=== PATIENT | female | born 1960 | race Caucasian/White ===

== ENCOUNTER 2022-01-11 13:44 | Emergency (ER) | payer MEDICAID ==
[~2022-01-11] VITALS: Ht 139.7 cm; Wt 71.7 kg
[2022-01-11 14:04] VITALS: BP 177/89
--- NOTE | 2022-01-11 14:09 | NUR ---
61 Y/O FEMALE BIB SELF C/O RIGHT SHOULDER PAIN, HEADACHE RADIATING TO THE BACK 03/01 X2 WEEKS. DENIES ANY CHEST PAIN, N/V. TOOK TYLENOL FOR PAIN WITH MINIMAL RELIEF. BP AT TRIAGE 177/89, BS 130. PT STATES THAT THEY TOOK THEIR BLOOD PRESSURE MEDICATION THIS MORNING ALLERGY: PENICILLIN PMH: HTN, DM
[2022-01-11] MEDS ORDERED: ACET-8386 PO (14:46)
[2022-01-11] MEDS ORDERED: IBUP-2213 PO (14:46)
[2022-01-11] MEDS: KETOROLAC 60 MG/2 ML VIAL IM ONE (14:48)
[2022-01-11 15:10] VITALS: BP 141/67
--- NOTE | 2022-01-11 15:10 | NUR ---
Patient discharged with v/s stable. Written and verbal after care instructions About musculoskeletal pain given and explained. Patient alert, oriented and verbalized understanding of instructions. Ambulatory with steady gait. All questions addressed prior to discharge. ID band removed. Patient advised to follow up with PMD. Rx of NORCO 5-325, MOTRIN given. Patient educated on indication of medication including possible reaction and side effects. Opportunity to ask questions provided and answered.
== END 2022-01-11 15:10 | disposition home or self-care (01) ==
LOC: MED 13:44
DX: M79.18 Myalgia, other site (principal); E11.9 Type 2 diabetes mellitus without complications; I10 Essential (primary) hypertension; Z88.0 Allergy status to penicillin
CPT/HCPCS: 81002; 96372; 99283; J1885

== ENCOUNTER 2022-04-14 18:32 | Emergency (ER) | payer MEDICAID ==
[~2022-04-14] VITALS: Ht 138.4 cm; Wt 72.2 kg
[~2022-04-14 18:32] MED LIST: ACET-8386 PO; IBUP-2213 PO
[2022-04-14 18:38] VITALS: BP 160/75
--- NOTE | 2022-04-14 18:44 | NUR ---
Cameron beard in [facility] - 04/14/22 at 1846 by [email or web address] PT AMB TO BED 3.
--- NOTE | 2022-04-14 18:46 | NUR ---
PT AMB TO BED 4.
[2022-04-14] MEDS ORDERED: ACETAMINOPHEN 325 MG TAB PO ONE (19:30)
[2022-04-14] MEDS ORDERED: DOXY-565 PO (19:40)
[2022-04-14] MEDS ORDERED: IBUP-2213 PO (19:40)
[2022-04-14] MEDS ORDERED: BACI1PAC6 TP (19:40)
[2022-04-14 20:00] VITALS: BP 154/68
--- NOTE | 2022-04-14 20:02 | NUR ---
62 Y/O FEMALE BIBS FROM HOME, C/O CAT BITE XTODAY. BLEEDING CONTROLLED, SUPERFICIAL SCRATCH. PT IS ONLY CONCERNED DUE TO HER DIABETES. NO BRUISING OR DEFORMITIES. PMH: DM
--- NOTE | 2022-04-14 20:05 | NUR ---
Patient discharged with v/s stable. Written and verbal after care instructions given and explained. Patient alert, oriented and verbalized understanding of instructions. Ambulatory with steady gait. All questions addressed prior to discharge. ID band removed. Patient advised to follow up with PMD. Rx of BACITRACIN, DOXYCYCLINE MONOHYDRATE, AND IBUPROFEN given. Patient educated on indication of medication including possible reaction and side effects. Opportunity to ask questions provided and answered. VSS, A/OX4, AMBULATORY, UNLABORED BREATHING, AND CALM DEMEANOR.
== END 2022-04-14 20:05 | disposition home or self-care (01) ==
LOC: MED 18:32
DX: S81.851A Open bite, right lower leg, initial encounter (principal); E11.9 Type 2 diabetes mellitus without complications; I10 Essential (primary) hypertension; Z88.0 Allergy status to penicillin; Z79.899 Other long term (current) drug therapy; W55.01XA Bitten by cat, initial encounter; Y93.89 Activity, other specified; Y92.59 Other trade areas as the place of occurrence of the external cause; Y99.8 Other external cause status
CPT/HCPCS: 90471; 90715; 99283

== ENCOUNTER 2022-05-02 20:18 | Emergency (ER) | payer MEDICAID ==
[~2022-05-02] VITALS: Ht 137.2 cm; Wt 72.6 kg
[~2022-05-02 20:18] MED LIST changes: +BACI1PAC6 TP; +DOXY-565 PO
[2022-05-02 20:24] VITALS: BP 149/79
[2022-05-02] MEDS ORDERED: PRED20TA5 PO (21:13)
[2022-05-02] MEDS: methylPREDNISolone SS 125 MG/2 ML VIAL IM ONE (21:28)
[2022-05-02] MEDS: FAMOTIDINE 20 MG TAB PO ONE (21:29)
[2022-05-02 22:10] VITALS: BP 149/79
== END 2022-05-02 22:10 | disposition home or self-care (01) ==
LOC: MED 20:18
DX: T78.40XA Allergy, unspecified, initial encounter (principal); E11.9 Type 2 diabetes mellitus without complications; I10 Essential (primary) hypertension; Z88.0 Allergy status to penicillin; Z79.899 Other long term (current) drug therapy; X58.XXXA Exposure to other specified factors, initial encounter
CPT/HCPCS: 96372; 99283; J2930; Q0163